=== PATIENT | female | born 1960 | race Caucasian/White ===

== ENCOUNTER 2016-03-30 13:22 | Outpatient (CLI) | payer OTHER ==
[2015-08-04 10:13] VITALS: O2SAT 98
== END 2016-03-30 13:23 | disposition home or self-care (01) | DRG 948 ==
LOC: CONVCARE 13:22
PROVIDERS: ATTEND Orthopaedic Surgery
DX: R53.1 Weakness (principal); M25.551 Pain in right hip; Z87.81 Personal history of (healed) traumatic fracture; M25.571 Pain in right ankle and joints of right foot; M25.561 Pain in right knee; Z96.641 Presence of right artificial hip joint
CPT/HCPCS: 73502; 73562; 73610

== ENCOUNTER 2017-10-11 13:23 | Outpatient (CLI) | payer OTHER, MEDICARE ==
[2015-08-04 10:13] VITALS: O2SAT 98
== END 2017-10-11 13:24 | disposition home or self-care (01) | DRG 556 ==
LOC: CONVCARE 13:23
PROVIDERS: ATTEND Orthopaedic Surgery
DX: M25.561 Pain in right knee (principal); M25.552 Pain in left hip; M25.551 Pain in right hip; M17.11 Unilateral primary osteoarthritis, right knee
CPT/HCPCS: 73502

== ENCOUNTER 2018-02-14 14:35 | Outpatient (CLI) | payer OTHER, MEDICARE ==
[2015-08-04 10:13] VITALS: O2SAT 98
== END 2018-02-14 14:36 | disposition home or self-care (01) | DRG 554 ==
LOC: CONVCARE 14:35
PROVIDERS: ATTEND Orthopaedic Surgery
DX: M17.11 Unilateral primary osteoarthritis, right knee (principal)
CPT/HCPCS: 73564

== ENCOUNTER 2018-05-20 11:24 | Inpatient (IN) | payer OTHER, MEDICARE ==
[2018-05-20] MEDS ORDERED: SODIUM CHLORIDE 0.9% 1000ML 1,000 ML IV ONE (11:35)
[2018-05-20] MEDS ORDERED: ONDANSETRON HCL 4 MG/2 ML SOL IV ONE (11:35)
[2018-05-20] MEDS: SODIUM CHLORIDE 0.9% FLUSH 10 ML SOL IV PRN ×2 (11:36→14:01)
[2018-05-20] MEDS ORDERED: MORPHINE SULFATE 10 MG/ML SOL IV ONE ×3 (11:36→13:37)
[2018-05-20] MEDS ORDERED: MORPHINE SULFATE 10 MG/ML SOL ONE ×3 (11:44→13:39)
[2018-05-20] MEDS ORDERED: ONDANSETRON HCL 4 MG/2 ML SOL ONE (11:44)
[2018-05-20 11:50] LABS: BASOPHILS % (AUTO) 1 % (0-3); EOSINOPHILS % (AUTO) 0 % (0-9); HEMATOCRIT 42 % (35-47); LYMPHOCYTES % (AUTO) 28.6 % (10-50); MEAN CORPUSCULAR HEMOGLOBIN 25.8 pg (27.0-32.0); MEAN CORPUSCULAR HGB CONC 31.3 gm/dl (32.0-36.0); MEAN CORPUSCULAR VOLUME 82 fL (81-99); MONOCYTES % (AUTO) 6.5 % (0-12); NEUTROPHILS % (AUTO) 64.4 % (37-80)
[2018-05-20 11:59] LABS: ALBUMIN 3.5 gm/dl (3.4-5.0); BILIRUBIN,TOTAL 0.4 mg/dl (0.2-1.0); CALCIUM 8.7 mg/dl (8.5-10.1); CARBON DIOXIDE 31.2 mEq/L (21-32); CREATININE 0.9 mg/dl (0.60-1.00); POTASSIUM 3.5 mMol/L (3.5-5.1)
[2018-05-20] MEDS ORDERED: KETOROLAC TROMETHAMINE 30 MG/ML SOL IV ONE (12:24)
[2018-05-20] MEDS ORDERED: KETOROLAC TROMETHAMINE 30 MG/ML SOL ONE (12:26)
[2018-05-20] MEDS ORDERED: HYDROMORPHONE 1 MG/ML SYRINGE IV PRN (14:26)
[2018-05-20] MEDS ORDERED: ALBUTEROL HFA 60 PUFF/INHALER INH PRN (14:28)
[2018-05-20] MEDS ORDERED: SODIUM CHLORIDE 0.9% 1000ML 1,000 ML IV SCH (15:00)
[2018-05-20 17:17] LABS: APPEARANCE,URINE Clear; BILIRUBIN,URINE NEGATIVE (NEGATIVE); COLOR,URINE Dark yellow; GLUCOSE, URINE (UA) NEGATIVE (NEGATIVE); KETONES,URINE NEGATIVE (NEGATIVE); LEUKOCYTE ESTERASE ,URINE NEGATIVE (NEGATIVE); NITRATE,URINE NEGATIVE (NEGATIVE); OCCULT BLOOD,URINE TRACE INTACT (NEG-TRACE); PH,URINE 5.5; UROBILINOGEN,URINE 0.2 (0.2-1.0 EU)
[2018-05-20 17:28] LABS: WBC,URINE 0-2 (0-5AV/HPF)
[2018-05-20 17:29] LABS: BACTERIA 1+ (< 1+); CRYSTALS NEGATIVE (0-3 AVE/HPF)
[2018-05-20] MEDS ORDERED: ONDANSETRON HCL 4 MG/2 ML SOL IV PRN (19:35)
[2018-05-20] MEDS ORDERED: ATORVASTATIN 10 MG TAB PO SCH (21:00)
[2018-05-20] MEDS ORDERED: AMITRIPTYLINE 25 MG TAB PO SCH (21:00)
[2018-05-20] MEDS: FLUTICASONE/SALMETEROL 250/50 1 PUFF DSK INH SCH (21:11)
[2018-05-20] MEDS: GABAPENTIN 300 MG CAP PO SCH (21:14)
[2018-05-20] MEDS: PANTOPRAZOLE SODIUM 40 MG ECT PO SCH (21:15)
[2018-05-20] MEDS ORDERED: PATIENT EDUCATION 1 MISC PRN (21:23)
[2018-05-20] MEDS: SODIUM CHLORIDE 0.9% 1000ML 1,000 ML IV SCH (21:40)
[2018-05-21] MEDS: SODIUM CHLORIDE 0.9% 1000ML 1,000 ML IV SCH ×2 (00:48→04:20)
[2018-05-21 07:43] LABS: BASOPHILS % (AUTO) 0 % (0-3); EOSINOPHILS % (AUTO) 0 % (0-9); HEMATOCRIT 36 % (35-47); HEMOGLOBIN 11.4 gm/dl (12.0-15.5); LYMPHOCYTES % (AUTO) 28.6 % (10-50); MEAN CORPUSCULAR HEMOGLOBIN 26.3 pg (27.0-32.0); MEAN CORPUSCULAR HGB CONC 31.6 gm/dl (32.0-36.0); MEAN CORPUSCULAR VOLUME 83 fL (81-99); MONOCYTES % (AUTO) 6.9 % (0-12); NEUTROPHILS % (AUTO) 64.1 % (37-80)
[2018-05-21 07:51] VITALS: BP 115/70; PULSE 81; TEMP 97.5
[2018-05-21 07:57] LABS: CALCIUM 7.8 mg/dl (8.5-10.1); CARBON DIOXIDE 30.4 mEq/L (21-32); CREATININE 0.85 mg/dl (0.60-1.00); POTASSIUM 3.9 mMol/L (3.5-5.1)
[2018-05-21] MEDS: FLUTICASONE/SALMETEROL 250/50 1 PUFF DSK INH SCH (08:56)
[2018-05-21] MEDS: GABAPENTIN 300 MG CAP PO SCH (08:57)
[2018-05-21] MEDS: PANTOPRAZOLE SODIUM 40 MG ECT PO SCH (08:57)
[2018-05-21] MEDS ORDERED: MULTIVITAMIN2 1 EA TAB PO SCH (09:00)
[2018-05-21] MEDS ORDERED: PSYLLIUM 3.6 GM/1 TBS PDR PO SCH (09:00)
[2018-05-21] MEDS ORDERED: VENLAFAXINE HCL 150 MG CER PO SCH (09:00)
[2018-05-21] MEDS ORDERED: INFLUENZA VIRUS VACCINE 0.5 ML SUS IM ONE (09:19)
[2018-05-21 09:34] VITALS: O2SAT 98
[2018-05-21 11:45] VITALS: RESP 98
== END 2018-05-21 11:40 | disposition home or self-care (01) | DRG 607 ==
LOC: ED 11:24 → OBSVTOIN 13:50 → ACUTE CARE 13:50 → UNDOADMOB 14:07 → ACUTE CARE 14:07
PROVIDERS: ADMIT Family Medicine; ATTEND Family Medicine
DX: M79.3 Panniculitis, unspecified (principal); N20.0 Calculus of kidney
CPT/HCPCS: 36415; 74176; 80048; 80053; 81001; 85025; 90686; 94762; 96365; 96374; 96375; 99285; 99291; J1885; J2270; J2405; A9270-GY; G0008; J1170